=== PATIENT | male | born 2000 | race Hispanic/Latino ===

== ENCOUNTER 2019-07-13 00:26 | Emergency (ER) | payer BC, SELFPAY ==
--- NOTE | 2019-07-13 10:24 | RAD ---
MANDIBLE FOUR VIEWS: HISTORY: The patient was yawning and jaw became stuck. FINDINGS: No fracture is identified. A CT scan would be helpful for further evaluation and better evaluation for temporomandibular disloca tion. CODE T POS: [id number]
== END 2019-07-13 03:26 | disposition home or self-care (01) ==
LOC: ERS 00:26
DX: S03.03XA Dislocation of jaw, bilateral, initial encounter (principal); F41.9 Anxiety disorder, unspecified; X50.9XXA Other and unspecified overexertion or strenuous movements or postures, initial encounter
CPT/HCPCS: 70110